=== PATIENT | female | born 1950 | race Two or more races ===

== ENCOUNTER 2017-01-24 03:05 | Emergency (ER) | payer MEDICAID, OTHER ==
[~2017-01-24] VITALS: Ht 162.6 cm; Wt 53.5 kg
--- NOTE | 2017-01-24 03:15 | NUR ---
Pt ambulated to room with steady gait. Pt c/o dysuria and hematuria. Family at bedside. Dr. Schofield at bedside for MSE
[2017-01-24 03:24] LABS: *BILIRUBIN,URIN NEGATIVE (NEGATIVE); *CLARITY,URINE CLOUDY (CLEAR); *COLOR,URINE RED (YELLOW); *KETONES,URINE NEGATIVE (NEGATIVE); *PROTEIN,URINE 2+ (NEGATIVE); *UROBILINOGEN,URINE 0.2 E.U./dl (NORMAL); LEUKOCYTE ESTERASE ,URINE NEGATIVE (NEGATIVE); NITRITE, URINE NEGATIVE (NEGATIVE); PH,URINE 7.5 (5.0-8.0); UGLUCOSE NEGATIVE (NEGATIVE)
[2017-01-24 03:26] LABS: *BLOOD, URINE 3+ (NEGATIVE)
[2017-01-24 03:27] LABS: BACTERIA,URINE NONE SEEN /HPF (NONE SEEN); RBC,URINE TNTC /HPF (0-3); SQUAMOUS EPITHELIAL CELL,UR FEW /HPF (NONE SEEN); WBC,URINE 0-3 /HPF (0-3)
[2017-01-24] MEDS: ONDANSETRON ODT 4 MG TAB.RAPDIS SL ONE (03:29)
[2017-01-24] MEDS: ACETAMINOPHEN 325 MG TABLET PO ONE (03:29)
[2017-01-24] MEDS ORDERED: ACETAMINOPHEN 325 MG TABLET ONE (03:33)
[2017-01-24] MEDS ORDERED: ONDANSETRON ODT 4 MG TAB.RAPDIS ONE (03:33)
[2017-01-24] MEDS: PHENAZOPYRIDINE HCL 100 MG TABLET PO ONE (03:34)
--- NOTE | 2017-01-24 03:35 | NUR ---
Pt medicated for discomfort, will monitor for effects of medication. Pt resting in position of comfort for self.
[2017-01-24] MEDS ORDERED: PHENAZOPYRIDINE HCL 100 MG TABLET ONE (03:43)
[2017-01-24 03:50] LABS: BASOPHILS % (AUTO) 0.2 % (0.0-2.0); EOSINOPHILS # (AUTO) 0.1 K/uL (0.0-0.7); EOSINOPHILS % (AUTO) 2.2 % (0.0-7.0); HEMATOCRIT 38.6 % (37-47); HEMOGLOBIN 13.1 G/DL (12.0-16.0); LYMPHOCYTES # (AUTO) 1.9 K/UL (0.8-4.8); LYMPHOCYTES % (AUTO) 30.7 % (20.5-51.5); MEAN CORPUSCULAR HEMOGLOBIN 30.3 UUG (27.0-31.0); MEAN CORPUSCULAR HGB CONC 34 g/dL (32.0-37.0); MEAN CORPUSCULAR VOLUME 89.4 FL (81.0-99.0); MONOCYTES # (AUTO) 0.4 K/UL (0.1-1.30); MONOCYTES % (AUTO) 6.8 % (0.0-11.0); NEUTROPHILS # (AUTO) 3.8 K/UL (1.8-8.9); NEUTROPHILS % (AUTO) 60.1 % (38.5-71.5); PLATELET COUNT (AUTO) 198 K/UL (150-450); RED BLOOD CELL COUNT(AUTO) 4.32 MIL/UL (4.2-5.4); WHITE BLOOD COUNT (AUTO) 6.2 K/UL (4.0-11.2)
--- NOTE | 2017-01-24 03:50 | NUR ---
Pt to CT via w/c
[2017-01-24 03:53] LABS: CREATININE 0.9 mg/dL (0.6-1.3); POTASSIUM 4.1 mmol/L (3.5-5.1)
[2017-01-24 04:04] LABS: BILIRUBIN,DIRECT 0.1 mg/dL (0.0-0.2); BILIRUBIN,TOTAL 0.4 mg/dL (0.2-1.0); TOTAL PROTEIN, SERUM 8.1 g/dL (6.4-8.2)
--- NOTE | 2017-01-24 04:10 | NUR ---
Pt returned from CT, resting in position of comfort for self. Awaiting results.
--- NOTE | 2017-01-24 04:43 | NUR ---
Pt sts pain is slightly improving. Pt stable for discharge per Dr. Schofield. Pt and daughter given ACI. Both verbalized understanding of dc instructions. Pt ambulated out of er with steady gait and ride home
[2017-01-24 04:47] VITALS: BP 134/86
== END 2017-01-24 04:48 | disposition home or self-care (01) ==
LOC: ER 03:08
DX: R31.9 Hematuria, unspecified (principal); R30.0 Dysuria; Z88.0 Allergy status to penicillin; Z88.2 Allergy status to sulfonamides; Z88.6 Allergy status to analgesic agent
CPT/HCPCS: 36415; 74176; 80048; 80076; 81001; 85025; 85730; 87086; 99285; A4663; Q0162

== ENCOUNTER 2017-05-23 16:28 | Emergency (ER) | payer MEDICAID, OTHER ==
[~2017-05-23] VITALS: Ht 167.6 cm; Wt 54.0 kg
--- NOTE | 2017-05-23 17:23 | NUR ---
Patient discharged to home in stable conditon. Written and verbal after care instructions given. Patient verbalizes understanding of instructions.
== END 2017-05-23 17:24 | disposition home or self-care (01) ==
LOC: ER 16:28
DX: J32.9 Chronic sinusitis, unspecified (principal); Z88.0 Allergy status to penicillin; Z88.5 Allergy status to narcotic agent; Z88.2 Allergy status to sulfonamides; Z90.49 Acquired absence of other specified parts of digestive tract
CPT/HCPCS: A4663

== ENCOUNTER 2017-06-27 19:21 | Emergency (ER) | payer SELFPAY ==
[~2017-06-27] VITALS: Ht 167.6 cm; Wt 54.0 kg
[2017-06-27] MEDS ORDERED: ONDANSETRON ODT 4 MG TAB.RAPDIS SL ONE (22:15)
[2017-06-27] MEDS ORDERED: BENZONATATE 100 MG CAPSULE PO ONE (22:15)
--- NOTE | 2017-06-27 22:35 | NUR ---
Patient discharged to home in stable conditon. Written and verbal after care instructions given to pt and daughter with prescriptions. pt and daughter that they will be called with rapid flu results. Patient and daughter verbalizes understanding of instructions.
[2017-06-27] MEDS ORDERED: BENZONATATE 100 MG CAPSULE ONE (22:40)
[2017-06-27] MEDS ORDERED: ONDANSETRON ODT 4 MG TAB.RAPDIS ONE (22:40)
[2017-06-27 22:41] VITALS: BP 139/75
== END 2017-06-27 22:44 | disposition home or self-care (01) ==
LOC: ER 19:24
DX: J20.9 Acute bronchitis, unspecified (principal); B34.9 Viral infection, unspecified; E78.00 Pure hypercholesterolemia, unspecified; Z88.0 Allergy status to penicillin; Z88.2 Allergy status to sulfonamides; Z88.5 Allergy status to narcotic agent; Z90.49 Acquired absence of other specified parts of digestive tract
CPT/HCPCS: 87400; A4663; Q0162

== ENCOUNTER 2019-04-18 01:29 | Inpatient (IN) | payer SELFPAY ==
[~2019-04-18] VITALS: Ht 167.6 cm; Wt 55.3 kg
--- NOTE | 2019-04-18 01:42 | NUR ---
PT WALKED IN BROUGHT FROM HOME BY DAUGHTER RECEIVED ON WHEELCHAIR BY TRIAGE/CODING QUALITY ANALYST PT WAS NOT RESPONDING TO NAME VITALS MONITORED GLUCOSE AT 104MG/DL ENDORSED BY DAUGHTER: MOTHER HAS NOT BEEN ABLE TO EAT SOLID FOODS FOR THE PAST 4WKS, +COUGH FOR THE PAST 6WKS (BROWN SPUTUM) DENIES RECENT TRAVELS +CHILLS +NAUSEA MD AT BEDSIDE PT ABLE TO RESPOND AND FOLLOW COMMANDS AFTER 3MINS STATING "I PASSED OUT. I DO NOT KNOW WHERE I AM" Addendum: 04/18/19 at 0238 by MARICASTIL MOTHER HAS NOT BEEN ABLE TO EAT SOLID FOODS FOR THE PAST 6-6DAYS, +COUGH FOR THE PAST 6WKS (BROWN SPUTUM)
[2019-04-18] MEDS ORDERED: IV NORMAL SALINE 1000 ML BAG IV ONE ×2 (01:45→02:45)
[2019-04-18] MEDS ORDERED: ONDANSETRON 4 MG/2 ML VIAL IV ONE ×2 (02:00→03:15)
[2019-04-18] MEDS ORDERED: ONDANSETRON 4 MG/2 ML VIAL ONE ×2 (02:01→03:03)
[2019-04-18] MEDS ORDERED: MULT1TAB73 PO (02:01)
[2019-04-18 02:13] LABS: ETHANOL < 3 MG/DL (0-0)
[2019-04-18 02:21] LABS: CARBON DIOXIDE 24 mmol/L (21-32); CHLORIDE 102 mmol/L (98-107); CREATININE 1.1 mg/dL (0.6-1.3); GLUCOSE 113 mg/dL (74-106); POTASSIUM 3.4 mmol/L (3.5-5.1); UREA NITROGEN, BLOOD 29 mg/dL (7-18)
[2019-04-18 02:28] LABS: ALANINE AMINOTRANSFERASE 29 U/L (14-59); ALKALINE PHOSPHATASE 81 U/L (50-136); ASPARTATE AMINOTRANSFERASE 28 U/L (15-37); BILIRUBIN,DIRECT 0.1 mg/dL (0.0-0.2); BILIRUBIN,TOTAL 0.4 mg/dL (0.2-1.0)
[2019-04-18 02:32] LABS: ACETAMINOPHEN < 2.0 ug/mL (10-30)
[2019-04-18 02:35] LABS: BASOPHILS % (AUTO) 0.2 % (0.0-2.0); EOSINOPHILS % (AUTO) 0.2 % (0.0-7.0); HEMATOCRIT 39.6 % (31.2-41.9); HEMOGLOBIN 13.3 g/dL (10.9-14.3); LYMPHOCYTES # (AUTO) 2.1 K/uL (20.0-40.0); LYMPHOCYTES % (AUTO) 49.3 % (20.5-51.5); MEAN CORPUSCULAR HEMOGLOBIN 30.4 uug (24.7-32.8); MEAN CORPUSCULAR HGB CONC 34 g/dL (32.3-35.6); MEAN CORPUSCULAR VOLUME 90.9 fL (75.5-95.3); MONOCYTES # (AUTO) 0.4 K/uL (2.0-10.0); MONOCYTES % (AUTO) 8.4 % (0.0-11.0); NEUTROPHILS # (AUTO) 1.8 K/uL (1.8-8.9); NEUTROPHILS % (AUTO) 41.9 % (38.5-71.5); PLATELET COUNT (AUTO) 158 K/uL (179-408); RED BLOOD CELL COUNT(AUTO) 4.36 MIL/uL (3.63-4.92); WHITE BLOOD COUNT (AUTO) 4.3 K/uL (3.8-11.8)
--- NOTE | 2019-04-18 02:45 | NUR ---
PT IS RESPONSIVE AND SMILING ABLE TO SPEAK CLEAR AND COMPLETE SENTENCES STATES SHE IS FEELING WEAK C/O RIB CAGE TIGHTNESS AND PRESSURE PAIN
[2019-04-18 02:48] LABS: THYROID STIMULATING HORMONE 10.843 mIU/mL (0.358-3.740)
--- NOTE | 2019-04-18 02:54 | NUR ---
CALL FOR BED DONE
--- NOTE | 2019-04-18 02:59 | NUR ---
ERMD ON THE PHONE WITH IKER CALDERON PT WILL BE ADMITTED TO TELE RM 309 DX DEHYDRATION/HYPOTHYRODISM ALL BELONGINGS ACCOUNTED FOR SIGNED BY PT ALL BELONGINGS W/ PT
[2019-04-18] MEDS ORDERED: POTASSIUM CHLORIDE 20 MEQ TAB.PRT.SR PO ONE (03:15)
[2019-04-18] MEDS ORDERED: ONDANSETRON 4 MG/2 ML VIAL IV PRN (03:15)
[2019-04-18] MEDS ORDERED: ACETAMINOPHEN 325 MG TABLET PO PRN (03:15)
[2019-04-18] MEDS ORDERED: MORPHINE SULFATE 2 MG/1 ML DISP.SYRIN IV PRN (03:15)
[2019-04-18] MEDS ORDERED: HYDROCODONE/APAP 5-325MG TABLET PO PRN (03:15)
[2019-04-18] MEDS ORDERED: MAGNESIUM HYDROXIDE 30 ML LIQUID UDC PO PRN (03:15)
--- NOTE | 2019-04-18 03:21 | NUR ---
HAND OFF AND SBAR GIVEN TO ITALO ZAMARRIPA
[2019-04-18] MEDS: IV 1/2NS 1000 ML 1,000 ML IV PRN ×2 (03:48→17:24)
[2019-04-18] MEDS: CLONIDINE HCL 0.1 MG TABLET PO PRN (03:58)
[2019-04-18 04:28] LABS: *BILIRUBIN,URIN NEGATIVE (NEGATIVE); *CLARITY,URINE CLEAR (CLEAR); *COLOR,URINE YELLOW (YELLOW); *KETONES,URINE NEGATIVE (NEGATIVE); *UROBILINOGEN,URINE 0.2 E.U./dl (NORMAL); LEUKOCYTE ESTERASE ,URINE NEGATIVE (NEGATIVE); NITRITE, URINE NEGATIVE (NEGATIVE); UGLUCOSE NEGATIVE (NEGATIVE)
[2019-04-18 04:29] LABS: *BLOOD, URINE TRACE (NEGATIVE)
[2019-04-18 04:32] LABS: BACTERIA,URINE NONE SEEN /HPF (NONE SEEN); RBC,URINE 0-3 /HPF (0-3); SQUAMOUS EPITHELIAL CELL,UR FEW /HPF (NONE SEEN); WBC,URINE 0-3 /HPF (0-3)
[2019-04-18 04:38] LABS: *AMPHETAMINE, URINE NEGATIVE (NEGATIVE); *BARBITURATE, URINE NEGATIVE (NEGATIVE); *CANNABINOID, URINE NEGATIVE (NEGATIVE); *COCCAINE, URINE NEGATIVE (NEGATIVE); *OPIATE, URINE NEGATIVE (NEGATIVE); *PHENCYCLIDINE SCREEN,URINE NEGATIVE (NEGATIVE)
--- NOTE | 2019-04-18 05:56 | NUR ---
patient received from ER. no signs of acute distress and v/s stable on my shift. safety and comfort measures provided at all times. daughter at bedside. all medications administered. NS running at 80 ml/hr. will continue to monitor and endorse accordingly.
[2019-04-18] MEDS: PANTOPRAZOLE SODIUM 40 MG TABLET.DR PO SCH (06:12)
[2019-04-18 07:13] LABS: LYMPHOCYTES # (AUTO) 1.5 K/uL (20.0-40.0); MONOCYTES # (AUTO) 0.3 K/uL (2.0-10.0); MONOCYTES % (AUTO) 7.9 % (0.0-11.0); NEUTROPHILS # (AUTO) 1.5 K/uL (1.8-8.9)
[2019-04-18 07:26] LABS: BILIRUBIN,TOTAL 0.3 mg/dL (0.2-1.0); CREATININE 0.7 mg/dL (0.6-1.3); POTASSIUM 3.5 mmol/L (3.5-5.1); TOTAL PROTEIN, SERUM 6.3 g/dL (6.4-8.2)
[2019-04-18 07:27] LABS: BASOPHILS % (AUTO) 0.1 % (0.0-2.0); EOSINOPHILS % (AUTO) 0.7 % (0.0-7.0); HEMOGLOBIN 11.1 g/dL (10.9-14.3); LYMPHOCYTES % (AUTO) 45.4 % (20.5-51.5); MEAN CORPUSCULAR HEMOGLOBIN 30.7 uug (24.7-32.8); MEAN CORPUSCULAR HGB CONC 34 g/dL (32.3-35.6); MEAN CORPUSCULAR VOLUME 90.7 fL (75.5-95.3); NEUTROPHILS % (AUTO) 45.9 % (38.5-71.5); PLATELET COUNT (AUTO) 136 K/uL (179-408); WHITE BLOOD COUNT (AUTO) 3.2 K/uL (3.8-11.8)
[2019-04-18 07:28] LABS: HEMATOCRIT 32.7 % (31.2-41.9)
--- NOTE | 2019-04-18 08:00 | NUR ---
RECEIVED PT RESTING IN BED. PT DENIES PAIN AT THIS TIME. NO ACUTE DISTRESS OR SOB NOTED. BED LOCKED AND IN LOW POSITION. PT ON TELE MONITORING SINUS VICKIE 59. DAUGHTER AT BEDSIDE. WILL CONTINUE TO MONITOR.
[2019-04-18] MEDS ORDERED: Medication Not On Formulary EA (Multivitamins (Multivitamin) 1 TAB) PO SCH (09:00)
[2019-04-18] MEDS: MULTIVITAMINS,THERAPEUTIC TABLET PO SCH (09:01)
[2019-04-18 11:08] VITALS: BP 139/58
--- NOTE | 2019-04-18 12:00 | NUR ---
PT RESTING COMFORTABLY IN BED. DAUGHTER AT BEDSIDE. NO ACUTE DISTRESS OR SOB NOTED. PT GIVEN ZOFRAN AT 0900 FOR NAUSEA. NAUSEA RESOLVED. BED LOCKED AND IN LOW POSITION. WILL CONTINUE TO MONITOR.
[2019-04-18] MEDS: METOCLOPRAMIDE HCL 10 MG/2 ML VIAL IV PRN (14:06)
--- NOTE | 2019-04-18 14:30 | NUR ---
PT FELT NAUSEOUS AND HAS DIARRHEA. DOCTOR CALLED. ORDER FOR REGLAN GIVEN. PT'S NAUSEA SUBSIDED. NO ACUTE DISTRESS OR SOB NOTED AT THIS TIME.
[2019-04-18 14:35] VITALS: BP 157/74
[2019-04-18 15:08] VITALS: BP 153/69
[2019-04-18 15:39] VITALS: BP 153/69
--- NOTE | 2019-04-18 18:05 | NUR ---
PT RESTING COMFORTABLY IN BED. PT DENIES NAUSEA AND PAIN AT THIS TIME. NO ACUTE DISTRESS NOTED. NO SOB NOTED. DAUGHTER AT BEDSIDE. PT PLEASANT AND COOPERATIVE. BED LOCKED AND IN LOW POSITION. CALL LIGHT WITHIN REACH. IVF RUNNING. WILL GIVE SHIFT REPORT ACCORDINGLY.
--- NOTE | 2019-04-18 19:30 | NUR ---
Received complete report from AM nurse. Pt is resting in bed, up in semi reich's position. NO complaints of any pain or discomfort. IV fluids running as ordered. Initial assessment done, will document accordingly. Pt is on Tele, showing Sinus Rhythm on monitor @ 60. Will continue to monitor, and manage N/V as needed.
[2019-04-18 19:58] VITALS: BP 142/70
[2019-04-19] VITALS: BP 150/57
[2019-04-19 04:00] VITALS: BP 154/70
--- NOTE | 2019-04-19 05:32 | NUR ---
Pt slept through the night with no further episodes of nausea or vomiting. Dtr remained at bedside. Not in any active distress. Remained on Sinus Rhythm on Tele at 65. Able to tolerate fluids. Will continue to monitor and endorse accordingly.
[2019-04-19] MEDS: IV 1/2NS 1000 ML 1,000 ML IV PRN ×2 (06:09→20:23)
[2019-04-19 06:21] LABS: BASOPHILS % (AUTO) 0.2 % (0.0-2.0); EOSINOPHILS % (AUTO) 0.6 % (0.0-7.0); HEMATOCRIT 33.1 % (31.2-41.9); HEMOGLOBIN 11.2 g/dL (10.9-14.3); LYMPHOCYTES # (AUTO) 1.3 K/uL (20.0-40.0); LYMPHOCYTES % (AUTO) 29.2 % (20.5-51.5); MEAN CORPUSCULAR HEMOGLOBIN 30.1 uug (24.7-32.8); MEAN CORPUSCULAR HGB CONC 34 g/dL (32.3-35.6); MEAN CORPUSCULAR VOLUME 89.2 fL (75.5-95.3); MONOCYTES # (AUTO) 0.3 K/uL (2.0-10.0); NEUTROPHILS # (AUTO) 2.8 K/uL (1.8-8.9); PLATELET COUNT (AUTO) 144 K/uL (179-408); RED BLOOD CELL COUNT(AUTO) 3.71 MIL/uL (3.63-4.92); WHITE BLOOD COUNT (AUTO) 4.4 K/uL (3.8-11.8)
[2019-04-19 06:30] LABS: CREATININE 0.7 mg/dL (0.6-1.3); POTASSIUM 3.3 mmol/L (3.5-5.1)
[2019-04-19] MEDS: PANTOPRAZOLE SODIUM 40 MG TABLET.DR PO SCH (06:37)
[2019-04-19] MEDS: MULTIVITAMINS,THERAPEUTIC TABLET PO SCH (08:37)
[2019-04-19] MEDS: METOCLOPRAMIDE HCL 10 MG/2 ML VIAL IV PRN (08:39)
[2019-04-19] MEDS ORDERED: POTASSIUM CHLORIDE 20 MEQ TAB.PRT.SR PO ONE (11:00)
[2019-04-19 11:40] VITALS: BP 156/64
[2019-04-19] MEDS: CLONIDINE HCL 0.1 MG TABLET PO PRN (15:59)
[2019-04-19 16:00] VITALS: BP 169/74
--- NOTE | 2019-04-19 17:52 | NUR ---
Patient resting in bed, alert and oriented. No distress noted or current report of n/v. One time dose of reglan PRN given for nausea. Patient transitioned to clear liquid diet, tolerating well. PRN clonidine given for SBP >160. GI consult done by Lelia Go PIANO BUILDER, abdominal ultrasound will be done tomorrow morning. PT eval tomorrow morning. IV fluids continuously infusing. Will endorse care to oncoming shift.
--- NOTE | 2019-04-19 19:45 | NUR ---
Patient received in bed, awake alert and fully oriented. Full bedside report received from AM nurse. Patient denies any pain or discomfort at this time. No feelings of nausea noted. Daughter is at bedside. Noted with swelling on Left AC, indicative of Iv infiltration. Site removed and Ice applied and elevated extremity. Reinserted a new line on R forearm of 22G. IV fluids resumed. Will continue to monitor patient. Currently sinus rhythm on tele.
[2019-04-19 20:55] VITALS: BP 146/60
[2019-04-20] VITALS: BP 151/59
[2019-04-20 04:00] VITALS: BP 148/61
[2019-04-20] MEDS: PANTOPRAZOLE SODIUM 40 MG TABLET.DR PO SCH (06:31)
[2019-04-20 06:34] LABS: EOSINOPHILS % (AUTO) 0.7 % (0.0-7.0); HEMATOCRIT 32.4 % (31.2-41.9); LYMPHOCYTES # (AUTO) 1.5 K/uL (20.0-40.0); LYMPHOCYTES % (AUTO) 36.4 % (20.5-51.5); MEAN CORPUSCULAR HGB CONC 34 g/dL (32.3-35.6); MEAN CORPUSCULAR VOLUME 88.5 fL (75.5-95.3); MONOCYTES # (AUTO) 0.3 K/uL (2.0-10.0); NEUTROPHILS # (AUTO) 2.3 K/uL (1.8-8.9); NEUTROPHILS % (AUTO) 55.9 % (38.5-71.5); PLATELET COUNT (AUTO) 159 K/uL (179-408); RED BLOOD CELL COUNT(AUTO) 3.66 MIL/uL (3.63-4.92); WHITE BLOOD COUNT (AUTO) 4.1 K/uL (3.8-11.8)
[2019-04-20 06:51] LABS: CREATININE 0.7 mg/dL (0.6-1.3); POTASSIUM 3.3 mmol/L (3.5-5.1)
--- NOTE | 2019-04-20 06:51 | NUR ---
Pt able to sleep well. Kept NPO after midnight, because of JONAH of abdomen to be done today. No episodes of nausea/vomiting throughout the shift. Pt states that she has diarrhea, but daughter corrected that it did not happen during this shift but the shift prior. No BM all night. All needs promptly attended. IV running on R forearm without no issues. Previous IV site with no more swelling at this time. Sinus Rhythm on Tele, will continue to monitor and endorse accordingly.
--- NOTE | 2019-04-20 07:30 | NUR ---
Received patient in bed asleep with daughter at bedside. No SOB noted at this time, alert and and orientedx4, able to make needs known, IV intact and patent. No c/o pain at this time. Bed in low position. Safety and comfort provided at all time. Call light within reach.
[2019-04-20] MEDS: IV 1/2NS 1000 ML 1,000 ML IV PRN ×2 (08:49→20:36)
[2019-04-20] MEDS: MULTIVITAMINS,THERAPEUTIC TABLET PO SCH (09:30)
[2019-04-20] MEDS ORDERED: POTASSIUM CHLORIDE 20 MEQ TAB.PRT.SR PO ONE (09:45)
[2019-04-20 11:20] VITALS: BP 136/61
--- NOTE | 2019-04-20 11:53 | NUR ---
DR. VEGA BORJA ADVANCED DIET TO MECHANICAL SOFT.
[2019-04-20 15:10] VITALS: BP 136/64
--- NOTE | 2019-04-20 18:39 | NUR ---
Patient in bed with HOB elevated. The daughter is at bedside. No SOB noted at this time, alert and and oriented x4, able to make needs known, IV intact and patent with continuous IV fluids. No c/o pain at this time. Bed in low position. Safety and comfort provided at all time. Call light within reach.
[2019-04-20 20:11] VITALS: BP 165/62
[2019-04-21] MEDS: CLONIDINE HCL 0.1 MG TABLET PO PRN (00:28)
[2019-04-21 00:58] VITALS: BP 170/75
[2019-04-21 04:00] VITALS: BP 150/60
[2019-04-21] MEDS: PANTOPRAZOLE SODIUM 40 MG TABLET.DR PO SCH (06:22)
[2019-04-21 07:22] LABS: CREATININE 0.7 mg/dL (0.6-1.3); POTASSIUM 3.7 mmol/L (3.5-5.1)
[2019-04-21] MEDS: MULTIVITAMINS,THERAPEUTIC TABLET PO SCH (08:46)
--- NOTE | 2019-04-21 08:50 | NUR ---
PATIENTS DAUGHTER AT THE BEDSIDE AND STATED THAT THEY WILL LIKE FLU AND PNEUMONIA SHOTS STATED THAT ADI RODRIGUES WAS IN THE ROOM TO VISIT THIS AM AND STATED THAT PATIENT WILL BE DISCHARGED TODAY SO WILL ORDER AND ADMINISTER BEFIRE DISCHARGE
[2019-04-21] MEDS ORDERED: INFLUENZA VACCINE 2019-2020 0.5 ML DISP.SYRIN IM ONE (09:00)
--- NOTE | 2019-04-21 09:18 | NUR ---
ORDER TO DISCHARGE PATIENT HOME TODAY NOTED AND CARRIED OUT AND PATIENTS DAUGHTER ADI IS IN THE ROOM AND AWARE AND STATED WILL LET ME KNOW WHEN SHE IS READY BUT WANTS THE FLU AND PNEUMONIA SHOTS FIRST.
[2019-04-21] MEDS ORDERED: PNEUMOCOCCAL 23-VAL P-SAC VAC 0.5 ML VIAL IM ONE (10:00)
--- NOTE | 2019-04-21 11:33 | NUR ---
FLU SHOTS AND PNEUMONIA SHOTS GIVEN ORDERED AND PATIENT TOLERATED WELL.
[2019-04-21 11:35] VITALS: BP 131/56
--- NOTE | 2019-04-21 13:00 | NUR ---
PATIENT DISCHARGED PICKED UP BY HER DAUGHTER ADI IN SATISFACTORY CONDITION WITH ALL THE DISCHARGE PAPERS AND INSTRUCTIONS PATIENT RECEIVED THE FLU AND PNA SHOTS AND SHE WAS INSTRUCTED TO CALL FOR A FOLLOW UP APPOINTMENT WITH HER PRIMARY DOCTOR AND SHE EXPRESSED UNDERSTANDING.
== END 2019-04-21 13:00 | disposition home or self-care (01) | DRG 392 ==
LOC: ER 01:31 → TELE3 03:28
PROVIDERS: ADMIT Nurse Practitioner Acute Care; ATTEND Nurse Practitioner Acute Care
DX: A08.4 Viral intestinal infection, unspecified (principal); E86.0 Dehydration; Z90.710 Acquired absence of both cervix and uterus; Z90.49 Acquired absence of other specified parts of digestive tract; E87.6 Hypokalemia; R79.89 Other specified abnormal findings of blood chemistry; D69.6 Thrombocytopenia, unspecified; E03.9 Hypothyroidism, unspecified; E78.5 Hyperlipidemia, unspecified; E78.00 Pure hypercholesterolemia, unspecified
CPT/HCPCS: 36415; 70030-TC; 71045; 76700; 80307; 83605; 83690; 83735; 84100; 84443; 85025; 85730; 87040; 87086; 87400; 90686; 90732; 93005; A4663; G0378; G0480; G0480-TC; J2405; J2765; J3490; J7030

== ENCOUNTER 2020-04-17 23:51 | Emergency (ER) | payer MEDICARE, OTHER ==
[~2020-04-17] VITALS: Ht 167.6 cm; Wt 54.4 kg
[~2020-04-17 23:51] MED LIST: MULT-594 PO
--- NOTE | 2020-04-18 | NUR ---
Dr Kimball at bedside for MSE.
[2020-04-18] MEDS ORDERED: ASPI81TA31 PO (00:06)
[2020-04-18] MEDS ORDERED: IV NORMAL SALINE 1000 ML BAG IV ONE ×2 (00:15→04:15)
[2020-04-18] MEDS ORDERED: PANTOPRAZOLE SODIUM 40 MG VIAL IV ONE (00:15)
[2020-04-18] MEDS ORDERED: ONDANSETRON 4 MG/2 ML VIAL IV ONE ×2 (00:15→04:15)
[2020-04-18] MEDS ORDERED: PANTOPRAZOLE SODIUM 40 MG VIAL ONE (00:19)
[2020-04-18] MEDS ORDERED: ONDANSETRON 4 MG/2 ML VIAL ONE ×3 (00:19→04:09)
[2020-04-18 00:31] LABS: BASOPHILS % (AUTO) 0.1 % (0.0-2.0); EOSINOPHILS # (AUTO) 0.1 K/uL (0.0-0.7); EOSINOPHILS % (AUTO) 1.7 % (0.0-7.0); HEMATOCRIT 35.1 % (31.2-41.9); HEMOGLOBIN 12.5 g/dL (10.9-14.3); MEAN CORPUSCULAR HEMOGLOBIN 31.8 uug (24.7-32.8); MEAN CORPUSCULAR HGB CONC 36 g/dL (32.3-35.6); MONOCYTES # (AUTO) 0.2 K/uL (2.0-10.0); MONOCYTES % (AUTO) 4.2 % (0.0-11.0); NEUTROPHILS # (AUTO) 4.1 K/uL (1.8-8.9); PLATELET COUNT (AUTO) 168 K/uL (179-408); RED BLOOD CELL COUNT(AUTO) 3.95 MIL/uL (3.63-4.92); WHITE BLOOD COUNT (AUTO) 5.4 K/uL (3.8-11.8)
[2020-04-18 00:54] LABS: CREATININE 0.9 mg/dL (0.6-1.3); POTASSIUM 3.6 mmol/L (3.5-5.1)
[2020-04-18 01:00] LABS: BILIRUBIN,DIRECT 0.1 mg/dL (0.0-0.2); BILIRUBIN,TOTAL 0.6 mg/dL (0.2-1.0); TOTAL PROTEIN, SERUM 7.9 g/dL (6.4-8.2)
--- NOTE | 2020-04-18 01:07 | NUR ---
Pt down to CT. UA sample sent to lab.
[2020-04-18 01:16] LABS: *BILIRUBIN,URIN NEGATIVE (NEGATIVE); *BLOOD, URINE TRACE (NEGATIVE); *CLARITY,URINE CLEAR (CLEAR); *COLOR,URINE YELLOW (YELLOW); *KETONES,URINE NEGATIVE (NEGATIVE); *UROBILINOGEN,URINE 0.2 E.U./dl (NORMAL); LEUKOCYTE ESTERASE ,URINE NEGATIVE (NEGATIVE); NITRITE, URINE NEGATIVE (NEGATIVE); PH,URINE 8.5 (5.0-8.0); UGLUCOSE TRACE (NEGATIVE)
[2020-04-18 01:54] LABS: BACTERIA,URINE NONE SEEN /HPF (NONE SEEN); RBC,URINE 0-3 /HPF (0-3); SQUAMOUS EPITHELIAL CELL,UR FEW /HPF (NONE SEEN); WBC,URINE 0-3 /HPF (0-3)
[2020-04-18] MEDS ORDERED: MECLIZINE HCL 25 MG TABLET PO ONE (02:30)
[2020-04-18] MEDS ORDERED: MECLIZINE HCL 25 MG TABLET ONE (02:38)
--- NOTE | 2020-04-18 05:05 | NUR ---
Patient cleared for discharge by MD. Patient discharged to home in stable condition. Written and verbal after care instructions given to patient, and dtr as requested. Both verbalized understanding of instructions. IV removed. Catheter intact and site benign. Pressure and 4x4 gauze applied to site. No bleeding noted. Stressed follow up with PCP or return to ER for worsening s/s. Ambulated out of ER in steady gait.
[2020-04-18 05:09] VITALS: BP 145/95
== END 2020-04-18 05:10 | disposition home or self-care (01) ==
LOC: ER 23:52
DX: R11.10 Vomiting, unspecified (principal); R10.9 Unspecified abdominal pain; H81.10 Benign paroxysmal vertigo, unspecified ear; Z20.828 Contact with and (suspected) exposure to other viral communicable diseases; I44.0 Atrioventricular block, first degree; D69.6 Thrombocytopenia, unspecified; Z88.5 Allergy status to narcotic agent; Z88.0 Allergy status to penicillin; Z88.2 Allergy status to sulfonamides; E78.00 Pure hypercholesterolemia, unspecified
CPT/HCPCS: 36415; 70450; 71045; 74176; 80048; 80076; 81001; 83690; 84484; 85025; 87426; 93005; 96361; 96374; 96375; 96376; 99285; C9113; J2405 ×3; 70030-TC; J7030; J8597

== ENCOUNTER 2020-10-01 01:25 | Inpatient (IN) | payer BC, OTHER ==
[~2020-10-01] VITALS: Ht 160 cm; Wt 58.1 kg
[~2020-10-01 01:25] MED LIST changes: +ASPI81TA31 PO
[2020-10-01] MEDS ORDERED: PROCHLORPERAZINE EDISYLATE 10 MG/2 ML VIAL IV ONE (02:00)
[2020-10-01] MEDS ORDERED: hydrALAZINE HCL 20 MG/1 ML VIAL IV ONE (02:00)
[2020-10-01] MEDS ORDERED: hydrALAZINE HCL 20 MG/1 ML VIAL ONE (02:14)
[2020-10-01] MEDS ORDERED: PROCHLORPERAZINE EDISYLATE 10 MG/2 ML VIAL ONE (02:14)
[2020-10-01 02:16] LABS: BASOPHILS % (AUTO) 0.1 % (0.0-2.0); EOSINOPHILS # (AUTO) 0.1 K/uL (0.0-0.7); HEMATOCRIT 36.3 % (31.2-41.9); HEMOGLOBIN 12.4 g/dL (10.9-14.3); LYMPHOCYTES # (AUTO) 1.2 K/uL (20.0-40.0); LYMPHOCYTES % (AUTO) 20.8 % (20.5-51.5); MEAN CORPUSCULAR HEMOGLOBIN 30.8 uug (24.7-32.8); MEAN CORPUSCULAR HGB CONC 34 g/dL (32.3-35.6); MEAN CORPUSCULAR VOLUME 90.1 fL (75.5-95.3); MONOCYTES # (AUTO) 0.3 K/uL (2.0-10.0); MONOCYTES % (AUTO) 5.5 % (0.0-11.0); NEUTROPHILS # (AUTO) 4.1 K/uL (1.8-8.9); NEUTROPHILS % (AUTO) 72.6 % (38.5-71.5); PLATELET COUNT (AUTO) 186 K/uL (179-408); RED BLOOD CELL COUNT(AUTO) 4.03 MIL/uL (3.63-4.92); WHITE BLOOD COUNT (AUTO) 5.6 K/uL (3.8-11.8)
[2020-10-01 02:24] LABS: CREATININE 0.8 mg/dL (0.6-1.3); POTASSIUM 3.5 mmol/L (3.5-5.1)
[2020-10-01 02:30] LABS: BILIRUBIN,DIRECT 0.1 mg/dL (0.0-0.2); BILIRUBIN,TOTAL 0.4 mg/dL (0.2-1.0); TOTAL PROTEIN, SERUM 7.7 g/dL (6.4-8.2)
[2020-10-01] MEDS ORDERED: IV NORMAL SALINE 500 ML BAG IV ONE (02:45)
[2020-10-01] MEDS ORDERED: HYDROMORPHONE 1 MG/1 ML DISP.SYRIN IV ONE (03:00)
[2020-10-01] MEDS ORDERED: ONDANSETRON 4 MG/2 ML VIAL ONE (03:10)
[2020-10-01] MEDS ORDERED: HYDROMORPHONE 1 MG/1 ML DISP.SYRIN ONE (03:10)
[2020-10-01] MEDS ORDERED: MAGNESIUM CITRATE 296 ML BOTTLE PO ONE (03:15)
[2020-10-01] MEDS ORDERED: ONDANSETRON 4 MG/2 ML VIAL IV ONE (03:15)
[2020-10-01] MEDS ORDERED: MAGNESIUM CITRATE 296 ML BOTTLE ONE (03:18)
[2020-10-01 06:36] VITALS: BP 135/65
[2020-10-01 06:40] VITALS: BP 135/65
[2020-10-01] MEDS ORDERED: IV NS 1000 ML 1,000 ML IV PRN (07:30)
[2020-10-01] MEDS ORDERED: ACETAMINOPHEN 325 MG TABLET PO PRN (07:30)
[2020-10-01] MEDS ORDERED: ZOLPIDEM 5 MG TABLET PO PRN (07:30)
[2020-10-01] MEDS ORDERED: Z GUARD REMEDY PASTE 57 GM TUBE TOP PRN (07:30)
[2020-10-01] MEDS ORDERED: MAGNESIUM HYDROXIDE 30 ML LIQUID UDC PO PRN (07:30)
[2020-10-01] MEDS ORDERED: ONDANSETRON 4 MG/2 ML VIAL IV PRN (07:30)
[2020-10-01] MEDS ORDERED: PANTOPRAZOLE SODIUM 40 MG VIAL IV SCH (09:00)
[2020-10-01] MEDS ORDERED: MULTIVITAMINS,THERAPEUTIC TABLET PO SCH (10:15)
[2020-10-01] MEDS ORDERED: MIRALAX 17 GM POWD.PACK PO ONE (10:15)
[2020-10-01] MEDS ORDERED: ASPIRIN 81 MG TAB.CHEW PO SCH (10:15)
[2020-10-01 12:00] VITALS: BP 151/72
[2020-10-01 16:00] VITALS: BP 99/46
== END 2020-10-01 19:23 | disposition home or self-care (01) | DRG 392 ==
LOC: ER 01:34 → TELE-TD3 06:04 → UNDOADMIN 06:04 → TELE3 06:05 → MEDSURG3 10:00
PROVIDERS: ADMIT Nurse Practitioner Acute Care; ATTEND Nurse Practitioner Acute Care
DX: A08.4 Viral intestinal infection, unspecified (principal); E87.1 Hypo-osmolality and hyponatremia; N13.30 Unspecified hydronephrosis; K59.00 Constipation, unspecified; R11.2 Nausea with vomiting, unspecified; R94.31 Abnormal electrocardiogram [ECG] [EKG]; E78.5 Hyperlipidemia, unspecified; E86.0 Dehydration; Z20.822 Contact with and (suspected) exposure to COVID-19; R07.2 Precordial pain; Z90.710 Acquired absence of both cervix and uterus
CPT/HCPCS: 70030-TC; 70450; 83690; 85025; 85730; 93005; A4663; C9113; G0378; J0360; J0780; J1170; J2405; J7030